=== PATIENT | male | born 1990 | race Caucasian/White ===

== ENCOUNTER 2016-11-21 03:29 | Emergency (ER) | payer OTHER ==
--- NOTE | 2016-11-21 07:01 | ED ORDER SUMMARY ---
..... Patient: ROSMERY MOHAN I OrderSheet [facility] VisitID: [id number] [place] [address] 26y, M Registration Date/Time: 11/21/2016 ORDER SHEET Weight: 97.5 kg (stated) Allergies: No Known Drug Allergy GENERAL ORDERS: - (CAN BE DISCHARGED AT 0700 IF HE STILL IS AWAKE AND ALERT.) (04:50 11/21/2016 Roxana TURPIN) (Ack 4:59 JQuivey R.N.) MEDICATION ORDERS: Tdap IM 0.5 mL (NOW) (04:44 11/21/2016 Roxana TURPIN) (Ack 4:47 JQuivey R.N.) (4:52 JQuivey R.N.) Zofran ODT PO 4 mg (NOW) (04:57 11/21/2016 Roxana TURPIN) (4:59 JQuivey R.N.) Maalox PO 30 mL (NOW) (05:20 11/21/2016 JQuivey R.N. per protocol) (5:23 JQuivey R.N.) IV FLUIDS: ORDER SHEET NOTES: [Electronically signed by Charles Lanza R.N. (07:17 11/21/2016)] [Electronically signed by Roberto Lazaro MD (11:24 11/22/2016)] [Electronically locked/signed by Charles Lanza R.N. (07:17 11/21/2016)]
--- NOTE | 2016-11-21 07:01 | ED NURSING NOTES ---
Clinical Report - Nurses [facility] [address] [place] [address] 11/21/2016 3:29 Patient: ROSMERY MOHAN I TRIAGE Triage time 03:26. Acuity: LEVEL 4. Chief Complaint: (Possibly swallowed 1/4gram of Heroin, scratches on legs). 03:31. Alert. SEPSIS SCREEN: Sepsis Screen. Negative (no infection suspected/documented). --03:31 Charles Lanza R.N. 03:26 11/21/16. BP: 134/71. HR: 53. RR: 14. O2 saturation: 98%. Temp: 98.2 F (oral). Pain level now: 01/27. --03:31 Charles Lanza R.N. Weight: 97.5 kg stated. Height/Length: 70 inches Per Patient. BMI: 30.8. --03:27 Charles Lanza R.N. Medications None. --03:29 Charles Lanza R.N. Allergies No Known Drug Allergy. --03:29 Charles Lanza R.N. Medication/allergy information source: the patient. --03:31 Charles Lanza R.N. History Arrived by private vehicle. Historian: patient. Accompanied by police. Primary physician (None). Onset. (2 hours ago). Treatment SCREEN OPERATOR: None. PAST MEDICAL HX: Immunizations: up-to-date and (Needs Tdap). SOCIAL HX: Current every day heavy tobacco smoker- 1 pack per day. History of drug use: cocaine, heroin, methamphetamines, marijuana. (Heroin daily). No alcohol use. No infectious disease exposure. ABUSE ASSESSMENT: No report of abuse. FALL RISK ASSESSMENT: Fall risk assessment completed. No fall risk identified. NUTRITIONAL RISK ASSESSMENT: The nutritional risk assessment revealed no deficiencies. FUNCTIONAL ASSESSMENT: Functional assessment: no impairments noted. LEARNING NEEDS ASSESSMENT: The learning needs assessment revealed no barriers. SKIN INTEGRITY ASSESSMENT: Skin integrity risk assessment completed. No skin integrity risk identified. --03:31 Charles Lanza R.N. Accompanied by police. --03:31 Charles Lanza R.N. PROBLEMS: Depression. Anxiety Reaction. --03:29 Charles Lanza R.N. ADDITIONAL SURGERIES: Oral surgery. --03:29 Charles Lanza R.N. Interventions ID band on patient. To treatment room. --03:31 Charles Lanza R.N. PHYSICAL ASSESSMENT 03:33. Ambulatory to room. GENERAL / NEURO / PSYCH: Alert. Oriented X 4. HEENT: No facial asymmetry noted. Mucous membranes are pink. RESPIRATORY: Respirations not labored. CVS: Pulses within normal limits. SKIN: Skin is warm and dry. Normal skin turgor. ( Numerous scratches on legs). --03:33 Charles Lanza R.N. NURSING PROGRESS NOTES 03:33. Head of bed elevated. Two patient identifiers checked. Call light placed in reach. Bed placed in lowest position. Brakes of bed on. Patient ready for evaluation- chart flagged. --03:33 Charles Lanza R.N. 03:40 Both legs scrubed with chlorhexidine and water, bacitracin applied to wounds. --03:51 Charles Lanza R.N. 04:52 11/21/2016 TDAP IM 0.5 mL given. (Lot#: [id number], expiration date: 05/27/2018, [employer] Repairer: sanofi pasteur). Given in the left deltoid. Allergies verified and confirmed 5 rights. Vaccine information statement provided to the patient. --04:52 Charles Lanza R.N. 04:59 11/21/2016 Zofran ODT (Ondansetron) PO 4 mg given. Allergies verified and confirmed 5 rights. --04:59 Charles Lanza R.N. 05:23 11/21/2016 Maalox (Magnesium-Aluminum) PO 30 mL given. Allergies verified and confirmed 5 rights. --05:23 Charles Lanza R.N. 03:33 Patient remains in hand cuffs, Officer from [facility] at pt door. --05:57 Charles Lanza R.N. 04:56 Patient vomited clear liquid onto the floor, patient given tissues, emesis bag and wash rags. --05:53 Charles Lanza R.N. 05:16 Patient requesting something for heartburn. --05:54 Charles Lanza R.N. 05:57. The patient is sleeping. RESPIRATORY: No respiratory distress. SKIN: Skin is warm and dry. Skin color within normal limits. --05:57 Charles Lanza R.N. Patient states that he "I feel like crap but at least I have'nt thrown up for about 30 min. " also reports that his heartburn is better. The patient is calm and resting quietly. RESPIRATORY: No respiratory distress. SKIN: Skin color within normal limits. --06:32 Charles Lanza R.N. 07:11. RESPIRATORY: No respiratory distress. SKIN: Skin is warm and dry. Skin color within normal limits. --07:15 Charles Lanza R.N. DISPOSITION / DISCHARGE FALL RISK ASSESSMENT: Fall risk assessment completed. No fall risk identified. --04:36 Charles Lanza R.N. 04:36 11/21/16. BP: 149/68. HR: 99. RR: 13. O2 saturation: 100% on room air. Pain level now: 10/27. --04:36 Charles Lanza R.N. Departure time: 07:14. Condition at departure: stable. No learning barriers present. Discharge instructions provided and reviewed with the patient (Police). Patient verbalized understanding. Written instructions provided in French (given to officer). Verbalized understanding (Police). The patient was discharged to police department facility and accompanied by a police escort. He left the Emergency Department ambulatory. FALL RISK ASSESSMENT: Fall risk assessment completed. No fall risk identified. --07:14 Charles Lanza R.N. 07:01 11/21/16. BP: 139/70. HR: 88. RR: 16. O2 saturation: 98% on room air. Temp: 97.9 F. Pain level now: 12/27. --07:14 Charles Lanza R.N. Locked/Released at 11/21/2016 7:17 by Charles Lanza R.N.
--- NOTE | 2016-11-21 07:01 | ED NURSING NOTES ---
Clinical Report - Nurses [facility] [address] [place] [address] 11/21/2016 3:29 Patient: ROSMERY MOHAN I TRIAGE Triage time 03:26. Acuity: LEVEL 4. Chief Complaint: (Possibly swallowed 1/4gram of Heroin, scratches on legs). 03:31. Alert. SEPSIS SCREEN: Sepsis Screen. Negative (no infection suspected/documented). --03:31 Charles Lanza R.N. 03:26 11/21/16. BP: 134/71. HR: 53. RR: 14. O2 saturation: 98%. Temp: 98.2 F (oral). Pain level now: 01/27. --03:31 Charles Lanza R.N. Weight: 97.5 kg stated. Height/Length: 70 inches Per Patient. BMI: 30.8. --03:27 Charles Lanza R.N. Medications None. --03:29 Charles Lanza R.N. Allergies No Known Drug Allergy. --03:29 Charles Lanza R.N. Medication/allergy information source: the patient. --03:31 Charles Lanza R.N. History Arrived by private vehicle. Historian: patient. Accompanied by police. Primary physician (None). Onset. (2 hours ago). Treatment ROLL FORMER: None. PAST MEDICAL HX: Immunizations: up-to-date and (Needs Tdap). SOCIAL HX: Current every day heavy tobacco smoker- 1 pack per day. History of drug use: cocaine, heroin, methamphetamines, marijuana. (Heroin daily). No alcohol use. No infectious disease exposure. ABUSE ASSESSMENT: No report of abuse. FALL RISK ASSESSMENT: Fall risk assessment completed. No fall risk identified. NUTRITIONAL RISK ASSESSMENT: The nutritional risk assessment revealed no deficiencies. FUNCTIONAL ASSESSMENT: Functional assessment: no impairments noted. LEARNING NEEDS ASSESSMENT: The learning needs assessment revealed no barriers. SKIN INTEGRITY ASSESSMENT: Skin integrity risk assessment completed. No skin integrity risk identified. --03:31 Charles Lanza R.N. Accompanied by police. --03:31 Charles Lanza R.N. PROBLEMS: Depression. Anxiety Reaction. --03:29 Charles Lanza R.N. ADDITIONAL SURGERIES: Oral surgery. --03:29 Charles Lanza R.N. Interventions ID band on patient. To treatment room. --03:31 Charles Lanza R.N. PHYSICAL ASSESSMENT 03:33. Ambulatory to room. GENERAL / NEURO / PSYCH: Alert. Oriented X 4. HEENT: No facial asymmetry noted. Mucous membranes are pink. RESPIRATORY: Respirations not labored. CVS: Pulses within normal limits. SKIN: Skin is warm and dry. Normal skin turgor. ( Numerous scratches on legs). --03:33 Charles Lanza R.N. NURSING PROGRESS NOTES 03:33. Head of bed elevated. Two patient identifiers checked. Call light placed in reach. Bed placed in lowest position. Brakes of bed on. Patient ready for evaluation- chart flagged. --03:33 Charles Lanza R.N. 03:40 Both legs scrubed with chlorhexidine and water, bacitracin applied to wounds. --03:51 Charles Lanza R.N. 04:52 11/21/2016 TDAP IM 0.5 mL given. (Lot#: [id number], expiration date: 05/27/2018, Flanging Operator: sanofi pasteur). Given in the left deltoid. Allergies verified and confirmed 5 rights. Vaccine information statement provided to the patient. --04:52 Charles Lanza R.N. 04:59 11/21/2016 Zofran ODT (Ondansetron) PO 4 mg given. Allergies verified and confirmed 5 rights. --04:59 Charles Lanza R.N. 05:23 11/21/2016 Maalox (Magnesium-Aluminum) PO 30 mL given. Allergies verified and confirmed 5 rights. --05:23 Charles Lanza R.N. 03:33 Patient remains in hand cuffs, Officer from [facility] at pt door. --05:57 Charles Lanza R.N. 04:56 Patient vomited clear liquid onto the floor, patient given tissues, emesis bag and wash rags. --05:53 Charles Lanza R.N. 05:16 Patient requesting something for heartburn. --05:54 Charles Lanza R.N. 05:57. The patient is sleeping. RESPIRATORY: No respiratory distress. SKIN: Skin is warm and dry. Skin color within normal limits. --05:57 Charles Lanza R.N. Patient states that he "I feel like crap but at least I have'nt thrown up for about 30 min. " also reports that his heartburn is better. The patient is calm and resting quietly. RESPIRATORY: No respiratory distress. SKIN: Skin color within normal limits. --06:32 Charles Lanza R.N. 07:11. RESPIRATORY: No respiratory distress. SKIN: Skin is warm and dry. Skin color within normal limits. --07:15 Charles Lanza R.N. DISPOSITION / DISCHARGE FALL RISK ASSESSMENT: Fall risk assessment completed. No fall risk identified. --04:36 Charles Lanza R.N. 04:36 11/21/16. BP: 149/68. HR: 99. RR: 13. O2 saturation: 100% on room air. Pain level now: 10/27. --04:36 Charles Lanza R.N. Departure time: 07:14. Condition at departure: stable. No learning barriers present. Discharge instructions provided and reviewed with the patient (Police). Patient verbalized understanding. Written instructions provided in Khmer (given to officer). Verbalized understanding (Police). The patient was discharged to police department facility and accompanied by a police escort. He left the Emergency Department ambulatory. FALL RISK ASSESSMENT: Fall risk assessment completed. No fall risk identified. --07:14 Charles Lanza R.N. 07:01 11/21/16. BP: 139/70. HR: 88. RR: 16. O2 saturation: 98% on room air. Temp: 97.9 F. Pain level now: 12/27. --07:14 Charles Lanza R.N. Locked/Released at 11/21/2016 7:17 by Charles Lanza R.N.
--- NOTE | 2016-11-21 07:01 | ED CLINICAL REPORT ---
Clinical Report - Physicians/Mid Levels [facility] [address] [place] [address] 11/21/2016 3:29 Patient: ROSMERY MOHAN I Time Seen: 03:33. Arrived- By private vehicle. Historian- patient. HISTORY OF PRESENT ILLNESS Chief Complaint: Swallowed Heroin. ( Meth and heroin). Severity: No symptoms except from stickers. Modifying factors. Not worsened by anything. Not relieved by anything. This started at 1 AM; Pt was allegedly fleeing from police. In the course of this he swallowed a "rock" of heroin and ran through thick sticker bushes. There was no wrapper or condom on the heroin. and is still present. It was abrupt in onset. Similar symptoms previously: None. REVIEW OF SYSTEMS No fever, cough, difficulty breathing, chest pain or abdominal pain. He has had skin rash (abrasions). No difficulty with ambulation. PAST HISTORY PCP: Lorie Ops: TA Hosp: as for fever Illness: Lifestyle/substance abuse. SOCIAL HISTORY History of drug use: heroin, methamphetamines. ADDITIONAL NOTES The nursing notes have been reviewed. PHYSICAL EXAM Vital Signs: 11/21/2016 07:01 BP: 139/70. HR: 88. RR: 16. O2 saturation: 98%. Temp: 97.9 F. Pain level now: 12/27. 11/21/2016 04:36 BP: 149/68. HR: 99. RR: 13. O2 saturation: 100%. Pain level now: 10/27. 11/21/2016 03:26 BP: 134/71. HR: 53. RR: 14. O2 saturation: 98%. Temp: 98.2 F. Pain level now: 01/27. Appearance: Alert. (Alternating cooperative and abusive to police). Eyes: No scleral icterus. ENT: Pharynx normal. Neck: Normal inspection. CVS: Heart sounds normal. Respiratory: No respiratory distress. Breath sounds normal. Abdomen: No visible injury. Soft and nontender. Extremities: (hundereds of linear superficial abrasions consistent with running through sticker bushes.). Neuro: Oriented X 3. No motor deficit. No sensory deficit. PROGRESS AND PROCEDURES Course of Care: He was given Tdap 03:35 11/21/16. [place] of the Poison Control center is consulted re- "rock of heroin" .Heroin rapid absorption. Onset with in one hour. But PC recommends observation for 6 hours after ingestion is the ingested material may not be heroin. His is observed until 7 am. No significant depression of mental state or respiration. He became quite uncooperative as he was being transported to senior care. CLINICAL IMPRESSION HISTORY OF INGESTION OF HEROIN HISTORY OF METHAMPHETAMINE ABUSE MULTIPLE ABRASIONS. INSTRUCTIONS (AT 0700 WILL BE CLEARED FOR INCARCERATION ABRASIONS WILL NEED DAILY WASH/DRY/ AND ANTIBIOTIC OINTMENT.). Understanding of the discharge instructions verbalized by patient. Discharge instructions reviewed (POLICE). Follow-up with: [facility], , , [address], , [place], [id number] Follow up. Reason for referral: WOUND CHECK IN 7 DAYS UNLESS WELL. (Electronically signed by Roberto Lazaro MD 11/22/2016 11:24)
--- NOTE | 2016-11-21 07:01 | ED CLINICAL REPORT ---
Clinical Report - Physicians/Mid Levels [facility] [address] [place] [address] 11/21/2016 3:29 Patient: ROSMERY MOHAN I Time Seen: 03:33. Arrived- By private vehicle. Historian- patient. HISTORY OF PRESENT ILLNESS Chief Complaint: Swallowed Heroin. ( Meth and heroin). Severity: No symptoms except from stickers. Modifying factors. Not worsened by anything. Not relieved by anything. This started at 1 AM; Pt was allegedly fleeing from police. In the course of this he swallowed a "rock" of heroin and ran through thick sticker bushes. There was no wrapper or condom on the heroin. and is still present. It was abrupt in onset. Similar symptoms previously: None. REVIEW OF SYSTEMS No fever, cough, difficulty breathing, chest pain or abdominal pain. He has had skin rash (abrasions). No difficulty with ambulation. PAST HISTORY PCP: Lorie Ops: TA Hosp: as for fever Illness: Lifestyle/substance abuse. SOCIAL HISTORY History of drug use: heroin, methamphetamines. ADDITIONAL NOTES The nursing notes have been reviewed. PHYSICAL EXAM Vital Signs: 11/21/2016 07:01 BP: 139/70. HR: 88. RR: 16. O2 saturation: 98%. Temp: 97.9 F. Pain level now: 12/27. 11/21/2016 04:36 BP: 149/68. HR: 99. RR: 13. O2 saturation: 100%. Pain level now: 10/27. 11/21/2016 03:26 BP: 134/71. HR: 53. RR: 14. O2 saturation: 98%. Temp: 98.2 F. Pain level now: 01/27. Appearance: Alert. (Alternating cooperative and abusive to police). Eyes: No scleral icterus. ENT: Pharynx normal. Neck: Normal inspection. CVS: Heart sounds normal. Respiratory: No respiratory distress. Breath sounds normal. Abdomen: No visible injury. Soft and nontender. Extremities: (hundereds of linear superficial abrasions consistent with running through sticker bushes.). Neuro: Oriented X 3. No motor deficit. No sensory deficit. PROGRESS AND PROCEDURES Course of Care: He was given Tdap 03:35 11/21/16. Mariposa of the Poison Control center is consulted re- "rock of heroin" .Heroin rapid absorption. Onset with in one hour. But PC recommends observation for 6 hours after ingestion is the ingested material may not be heroin. His is observed until 7 am. No significant depression of mental state or respiration. He became quite uncooperative as he was being transported to longterm. CLINICAL IMPRESSION HISTORY OF INGESTION OF HEROIN HISTORY OF METHAMPHETAMINE ABUSE MULTIPLE ABRASIONS. INSTRUCTIONS (AT 0700 WILL BE CLEARED FOR INCARCERATION ABRASIONS WILL NEED DAILY WASH/DRY/ AND ANTIBIOTIC OINTMENT.). Understanding of the discharge instructions verbalized by patient. Discharge instructions reviewed (POLICE). Follow-up with: [facility], , , [address], , [place], [id number] Follow up. Reason for referral: WOUND CHECK IN 7 DAYS UNLESS WELL. (Electronically signed by Roberto Lazaro MD 11/22/2016 11:24)
--- NOTE | 2016-11-21 07:01 | ED ORDER SUMMARY ---
..... Patient: ROSMERY MOHAN I OrderSheet [facility] VisitID: [id number] [place] [address] 26y, M Registration Date/Time: 11/21/2016 ORDER SHEET Weight: 97.5 kg (stated) Allergies: No Known Drug Allergy GENERAL ORDERS: - (CAN BE DISCHARGED AT 0700 IF HE STILL IS AWAKE AND ALERT.) (04:50 11/21/2016 Roxana TURPIN) (Ack 4:59 JQuivey R.N.) MEDICATION ORDERS: Tdap IM 0.5 mL (NOW) (04:44 11/21/2016 Roxana TURPIN) (Ack 4:47 JQuivey R.N.) (4:52 JQuivey R.N.) Zofran ODT PO 4 mg (NOW) (04:57 11/21/2016 Roxana TURPIN) (4:59 JQuivey R.N.) Maalox PO 30 mL (NOW) (05:20 11/21/2016 JQuivey R.N. per protocol) (5:23 JQuivey R.N.) IV FLUIDS: ORDER SHEET NOTES: [Electronically signed by Charles Lanza R.N. (07:17 11/21/2016)] [Electronically signed by Roberto Lazaro MD (11:24 11/22/2016)] [Electronically locked/signed by Charles Lanza R.N. (07:17 11/21/2016)]
--- NOTE | 2016-11-22 11:24 | ED MED RECONCILIATION SUMMARY ---
Patient: ROSMERY MOHAN I Medication Reconciliation Report [facility] VisitID: [id number] [address] [place] [address] 26y, M Registration Date/Time: 11/21/2016 Weight: 97.5 kg Height/Length: 70 in. BMI: 30.8 ALLERGIES: No Known Drug Allergy The patient's Home Medications are listed below: NONE. The source(s) of the original Home Medication information: patient The following Medications were given to the patient in the Emergency Department: TDAP [IM] IM 0.5 mL, administered: 11/21/2016 4:52:00 AM Zofran ODT [PO] PO 4 mg, administered: 11/21/2016 4:59:00 AM Maalox [PO] PO 30 mL, administered: 11/21/2016 5:23:00 AM The following Medications were prescribed to the patient: None.
--- NOTE | 2016-11-22 11:24 | ED DISCHARGE INSTRUCTIONS ---
Patient: ROSMERY MOHAN I General Instructions [facility] VisitID: [id number] [address], [place] [address] 26y, M Registration Date/Time: 11/21/2016 HISTORY OF INGESTION OF HEROIN HISTORY OF METHAMPHETAMINE ABUSE MULTIPLE ABRASIONS. INSTRUCTIONS (AT 0700 WILL BE CLEARED FOR INCARCERATION ABRASIONS WILL NEED DAILY WASH/DRY/ AND ANTIBIOTIC OINTMENT.). Understanding of the discharge instructions verbalized by patient. Discharge instructions reviewed (POLICE). Follow-up with: [facility], , , [address], , [place], [id number] Follow up. Reason for referral: WOUND CHECK IN 7 DAYS UNLESS WELL. (Electronically signed by Roberto Lazaro MD 11/22/2016 11:24)
--- NOTE | 2016-11-22 11:24 | ED MAR SUMMARY ---
..... Medication Administration Record [facility] [address] [place] [address] Patient: ROSMERY MOHAN I Visit ID: [id number] 26y, M Weight: 97.5 kg Height/Length: 70 in BMI: 30.8 ALLERGIES: No Known Drug Allergy Given 04:52 11/21/2016 Charles Lanza, R.N. Medication Administered: TDAP [IM], Dose: 0.5 mL IM. Medication Ordered: Tdap IM 0.5 mL (NOW). Given 04:59 11/21/2016 Charles Lanza, R.N. Medication Administered: ZOFRAN ODT [PO] (ONDANSETRON), Dose: 4 mg PO. Medication Ordered: Zofran ODT PO 4 mg (NOW). Given 05:23 11/21/2016 Charles Lanza, R.N. Medication Administered: MAALOX [PO] (MAGNESIUM-ALUMINUM), Dose: 30 mL PO. Medication Ordered: Maalox PO 30 mL (NOW).
--- NOTE | 2016-11-22 11:24 | ED MAR SUMMARY ---
..... Medication Administration Record [facility] [address] [place] [address] Patient: ROSMERY MOHAN I Visit ID: [id number] 26y, M Weight: 97.5 kg Height/Length: 70 in BMI: 30.8 ALLERGIES: No Known Drug Allergy Given 04:52 11/21/2016 Charles Lanza, R.N. Medication Administered: TDAP [IM], Dose: 0.5 mL IM. Medication Ordered: Tdap IM 0.5 mL (NOW). Given 04:59 11/21/2016 Charles Lanza, R.N. Medication Administered: ZOFRAN ODT [PO] (ONDANSETRON), Dose: 4 mg PO. Medication Ordered: Zofran ODT PO 4 mg (NOW). Given 05:23 11/21/2016 Charles Lanza, R.N. Medication Administered: MAALOX [PO] (MAGNESIUM-ALUMINUM), Dose: 30 mL PO. Medication Ordered: Maalox PO 30 mL (NOW).
--- NOTE | 2016-11-22 11:24 | ED MED RECONCILIATION SUMMARY ---
Patient: ROSMERY MOHAN I Medication Reconciliation Report [facility] VisitID: [id number] [address] [place] [address] 26y, M Registration Date/Time: 11/21/2016 Weight: 97.5 kg Height/Length: 70 in. BMI: 30.8 ALLERGIES: No Known Drug Allergy The patient's Home Medications are listed below: NONE. The source(s) of the original Home Medication information: patient The following Medications were given to the patient in the Emergency Department: TDAP [IM] IM 0.5 mL, administered: 11/21/2016 4:52:00 AM Zofran ODT [PO] PO 4 mg, administered: 11/21/2016 4:59:00 AM Maalox [PO] PO 30 mL, administered: 11/21/2016 5:23:00 AM The following Medications were prescribed to the patient: None.
--- NOTE | 2016-11-22 11:24 | ED DISCHARGE INSTRUCTIONS ---
Patient: ROSMERY MOHAN I General Instructions [facility] VisitID: [id number] [address], [place] [address] 26y, M Registration Date/Time: 11/21/2016 HISTORY OF INGESTION OF HEROIN HISTORY OF METHAMPHETAMINE ABUSE MULTIPLE ABRASIONS. INSTRUCTIONS (AT 0700 WILL BE CLEARED FOR INCARCERATION ABRASIONS WILL NEED DAILY WASH/DRY/ AND ANTIBIOTIC OINTMENT.). Understanding of the discharge instructions verbalized by patient. Discharge instructions reviewed (POLICE). Follow-up with: [facility], , , [address], , [place], [address] Follow up. Reason for referral: WOUND CHECK IN 7 DAYS UNLESS WELL. (Electronically signed by Roberto Lazaro MD 11/22/2016 11:24)
== END 2016-11-21 07:14 | disposition home or self-care (01) ==
LOC: ED SRH 03:29
DX: T40.1X4A Poisoning by heroin, undetermined, initial encounter (principal); S80.819A Abrasion, unspecified lower leg, initial encounter; F15.10 Other stimulant abuse, uncomplicated; Z23 Encounter for immunization; Y28.8XXA Contact with other sharp object, undetermined intent, initial encounter; Y99.8 Other external cause status; Y92.9 Unspecified place or not applicable; Y93.02 Activity, running